=== PATIENT | female | born 1990 | race African-American/Black ===

== ENCOUNTER 2019-07-10 14:01 | Emergency (ER) | payer SELFPAY ==
[~2019-07-10] VITALS: Ht 160 cm; Wt 61.2 kg
[2019-07-10] MEDS ORDERED: ALBUTEROL2.5 MG/3 M INH (14:11)
--- NOTE | 2019-07-10 14:25 | NUR ---
ED Nurse Note:Patient walked to ER c/o abdominal pain after eating pizza. no episodes of diarrhea and constipation. No n/v episodes per patient. Bowel sounds present. Patient stated that her feeling of discomfort is like indigestion.
[2019-07-10 14:30] VITALS: BP 100/72
[2019-07-10] MEDS ORDERED: Azithromycin 250mg tab ORAL ONE (14:45)
[2019-07-10] MEDS ORDERED: Lidocaine 2% Visc 15ml soln ORAL ONE (14:45)
[2019-07-10] MEDS ORDERED: Lidocaine 1% MPF 10mg/ml 5ml INJ ONE (15:00)
[2019-07-10] MEDS ORDERED: FAMOTIDINE20 MG ORAL (15:21)
[2019-07-10 15:30] VITALS: BP 96/55
--- NOTE | 2019-07-10 15:31 | NUR ---
ER DISCHARGE NOTE: Patient is cleared to be discharged per ERMD, pt is aox4, on room air, with stable vital signs. pt was given dc and prescription instructions, pt was able to verbalize understanding, pt id band removed without complications. pt is able to ambulate with steady gait. pt took all belongings.
--- NOTE | 2019-07-10 16:19 | Emergency Room Report ---
History of Present Illness General Chief Complaint: Abdominal Pain Source: Patient Present Illness HPI 29-year-old female complaining of upper abdominal pain since yesterday after eating a pizza. Pain is 6 out of 10, feels burning and like something stuck. Denies fever, vomiting, diarrhea, shortness of breath, chest pain. Also concerned about STD exposure, requesting STD treatment. Two male sexual partners in the last 6 months. Denies dysuria, vaginal discharge, vaginal pain. Allergies: Coded Allergies: No Known Allergies (Unverified , 07/10/19) Patient History Past Medical History: asthma Past Surgical History: none Social History: Reports: smoking - marijuana; Denies: alcohol use, drug use Last Menstrual Period: 06/30/19 Now: No Nursing Documentation-[facility] Past Medical History: No History, Except For Hx Asthma: Yes Review of Systems All Other Systems: negative except mentioned in HPI Physical Exam Vital Signs Date Time Temp Pulse Resp B/P (MAP) Pulse Ox O2 Delivery O2 Flow Rate FiO2 07/10/19 14:04 97.3 77 18 92/65 (74) 95 Room Air Respiratory: chest non-tender, lungs clear, normal breath sounds, speaking full sentences Cardiovascular #1: regular rate, rhythm, no edema Gastrointestinal: non tender, soft, non-distended, no guarding Neurologic: alert, oriented x3, responsive, motor strength/tone normal, sensory intact, speech normal Medical Decision Making PA Attestation This patient was seen under the direct supervision of Dr. Gonzalez, who directed all aspects of care and diagnostic interpretation. Diagnostic Impression: Primary Impression: Exposure to sexually transmitted disease (STD) Additional Impression: Epigastric abdominal pain ER Course ED course HPI: 29-year-old female complaining of upper abdominal pain since yesterday after eating a pizza. Pain is 6 out of 10, feels burning and like something stuck. Denies fever, vomiting, diarrhea, shortness of breath, chest pain. Also concerned about STD exposure, requesting STD treatment. Two male sexual partners in the last 6 months. Denies dysuria, vaginal discharge, vaginal pain. Ddx; gastritis, GERD, STD HPI & PE consistent with: Epigastric abdominal pain Orders/ Interventions: Patient medicated with Mylanta and Viscous Lidocaine, with complete resolution of symptoms. Rocephin 250mg IM and azithromycin 1gm PO given in ER. Disposition: Patient discharged with Rx for famotidine. At this time pt. is stable for d/c to home. Advised diet modifications: avoid spicy and acidic food, raw food, fried foods, dairy products, eat smaller meals , avoid eating right before bed, elevate head of bed. Advised to increase fluids intake and rest, avoid strenuous activities. No sexual activity for 7 days. Will provide printed patient care instructions, and any necessary prescriptions. Care plan and follow up instructions have been discussed with the patient prior to discharge. Please note that this Emergency Department Report was dictated using [employer] technology software, occasionally this can lead to erroneous entry secondary to interpretation by the dictation equipment. Last Vital Signs Date Time Temp Pulse Resp B/P (MAP) Pulse Ox O2 Delivery O2 Flow Rate FiO2 07/10/19 15:30 98.0 62 16 96/55 98 Room Air Status: unchanged Disposition: HOME, SELF-CARE Condition: Improved Scripts Famotidine (FAMOTIDINE) 20 Mg Tablet 20 MG ORAL DAILY, #10 TAB 0 Refills Prov: Yina Vazquez 07/10/19 Patient Instructions: Abdominal Pain, Adult Additional Instructions: Followup with PCP in 2 days or return to ER if worsening symptoms, new symptoms or sudden change in condition Yina Vazquez Jul 10, 2019 16:19
== END 2019-07-10 15:30 | disposition home or self-care (01) ==
LOC: EMR 14:20
DX: R10.13 Epigastric pain (principal); Z20.2 Contact with and (suspected) exposure to infections with a predominantly sexual mode of transmission; J45.909 Unspecified asthma, uncomplicated; F12.10 Cannabis abuse, uncomplicated
CPT/HCPCS: 96372; 96374; 99284; J0696